=== PATIENT | male | born 1970 ===

== ENCOUNTER 2025-01-27 08:45 | Outpatient (CLI) | payer OTHER, SELFPAY ==
--- NOTE | 2025-01-27 08:50 | CTR_ITS ---
PROCEDURE INFORMATION: Exam: CT Abdomen And Pelvis Without And With Contrast Exam date and time: 01/27/2025 9:01 AM Age: 54 years old Clinical indication: Abdominal pain; Generalized; Prior surgery; Surgery date: 6+ months; Surgery type: Gb; --patient was told in [facility] that he had mesenteric changes that can only be caused by cancer, but has never had a cancer diagnosis; Additional info: Pain/cancer changes TECHNIQUE: Imaging protocol: Computed tomography of the abdomen and pelvis without and with contrast. Radiation optimization: All CT scans at this facility use at least one of these dose optimization techniques: automated exposure control; mA and/or kV adjustment per patient size (includes targeted exams where dose is matched to clinical indication); or iterative reconstruction. Contrast material: OMNI 350; Contrast volume: 100 ml; Contrast route: INTRAVENOUS (IV); COMPARISON: No relevant prior studies available. RADIATION DOSE METRICS: Total DLP (mGy-cm): 1619.47 FINDINGS: Lungs: The visualized lung bases are unremarkable. Liver: Normal. No mass. Gallbladder and biliary ducts: The gallbladder has been surgically removed. Pancreas: Normal. No ductal dilation. Spleen: Normal. No splenomegaly. Adrenal glands: Normal. No mass. Kidneys and ureters: Normal. No hydronephrosis. Stomach and bowel: There are scattered colonic diverticula which extends into the sigmoid. Appendix: No evidence of appendicitis. Intraperitoneal space: There is mild central mesenteric stranding. There are scattered normal-sized mesenteric nodes. There is no retroperitoneal lymphadenopathy. Vasculature: Unremarkable. No abdominal aortic aneurysm. Lymph nodes: There are normal-sized inguinal lymph nodes. Urinary bladder: Unremarkable as visualized. Reproductive: Unremarkable as visualized. Bones/joints: Degenerative changes present within the spine. Soft tissues: Unremarkable. CT/CT abdomen pelvis wo/w [id number] IMPRESSION: 1. Diverticulosis. 2. Mild central mesenteric stranding, can be associated with panniculitis. No obvious enteritis is identified.
[2025-01-27] MEDS: iohexol 350 mg/mL 500 mL Btl (per mL) IV (09:19)
== END 2025-01-27 08:46 | disposition home or self-care (01) ==
LOC: RAD 08:45
PROVIDERS: PCP Family Medicine; Visit Provider Family Medicine Geriatric Medicine
DX: Z01.89 Encounter for other specified special examinations (principal); G89.3 Neoplasm related pain (acute) (chronic); K57.30 Diverticulosis of large intestine without perforation or abscess without bleeding; K57.10 Diverticulosis of small intestine without perforation or abscess without bleeding
CPT/HCPCS: 74178; 99204